=== PATIENT | male | born 1960 | race Two or more races ===

== ENCOUNTER 2024-03-06 23:43 | Emergency (ER) | payer OTHER ==
[~2024-03-06] VITALS: Ht 162.6 cm; Wt 70.3 kg
[2024-03-07] MEDS ORDERED: KETOROLAC TROMETHAMINE 60 MG VIAL IM STA (03:39)
[2024-03-07] MEDS ORDERED: DEXAMETHASONE SODIUM PHOSPHATE 4 MG/ML VIAL IM STA (03:40)
[2024-03-07] MEDS ORDERED: OxyCODONE HCL/APAP UD (PERCOCET) PO STA (03:41)
== END 2024-03-07 05:07 | disposition home or self-care (01) ==
LOC: ER 23:43
DX: M79.671 Pain in right foot (principal)
CPT/HCPCS: 73610; 73630; 96372; 99283; J1100; J1885